=== PATIENT | female | born 1940 | race Caucasian/White ===

== ENCOUNTER 2016-06-12 01:22 | Observation (INO) ==
[2016-06-12] MEDS ORDERED: Aspirin 81 MG TAB.CHEW PO ONE (01:55)
[2016-06-12] MEDS ORDERED: Nitroglycerin 0.4 MG TAB.SUBL SL ONE (01:55)
--- NOTE | 2016-06-12 02:01 | Emergency Department Note ---
Disposition Clinical Impression: Chest pain Qualifiers: Chest pain type: unspecified Qualified Code(s): R07.9 - Chest pain, unspecified Disposition: Admitted As Inpatient Condition: Good Time of Disposition: 03:38 Chest Pain HPI - General Chief Complaint: ED Chest Pain Stated Complaint: Chest Pain Time Seen by Provider: 06/12/16 01:30 Source: patient Limitations: no limitations Vital Signs Reviewed: Yes Nursing Notes Reviewed: Yes - History of Present Illness Pt complaint: chest pain Onset (ago): day(s) (3) Duration: gradually worsening Onset: during rest Pain Location: left chest Severity scale (1-10): 2 Quality: similar to prior MD Improves with: nothing Worsens with: nothing Associated symptoms: Reports: nausea, dyspnea, palpitations. Denies: diaphoresis, syncope, fever, cough Treatments prior to arrival chest pain: none - Related Data Home Medications Medication Instructions Recorded Confirmed Atorvastatin Calcium 80 mg PO DAILY 01/23/15 06/12/16 Enalapril Maleate 20 mg PO DAILY 01/23/15 06/12/16 GlipiZIDE XL (24 HR) 10 mg PO DAILY 01/23/15 06/12/16 Hydrochlorothiazide 25 mg PO DAILY 01/23/15 06/12/16 Levothyroxine Sodium 75 mcg PO QAM 01/23/15 06/12/16 Metformin HCl 1,000 mg PO BID 01/23/15 06/12/16 Metoprolol 50 mg PO BID 01/23/15 06/12/16 SitaGLIPtin [Januvia] 100 mg PO DAILY 01/23/15 06/12/16 Venlafaxine 75 mg PO DAILY 01/23/15 06/12/16 Xanax 0.5 MG Tablet 1 mg PO DAILY 01/23/15 06/12/16 Previous Rx's Medication Instructions Recorded Aspirin Enteric Coated [Aspirin EC] 81 mg PO DAILY 30 Days 01/25/15 Nitroglycerin 0.4 mg SL Q5MIN PRN #100 tab.subl 01/25/15 Plavix 75 mg PO DAILY #30 01/25/15 Allergies Allergy/AdvReac Type Severity Reaction Status Date / Time No Known Allergies Allergy Verified 01/23/15 11:13 All systems ED: reviewed and negative except as stated. Constitutional: Denies: chills Eyes: Denies: eye pain ENT ED: Denies: ear pain Cardiovascular: Reports: as per HPI, palpitations. Denies: dyspnea on exertion , syncope Respiratory: Denies: cough, dyspnea, wheezes Gastrointestinal: Reports: as per HPI. Denies: abdominal pain, vomiting Genitourinary: Denies: dysuria Musculoskeletal: Denies: back pain Integumentary: Denies: rash Neurological: Reports: as per HPI. Denies: headache Psychiatric: Reports: anxiety Endocrine: Reports: fatigue Hematological/Lymphatic: Denies: easy bleeding Allergic/Immunologic: Denies: facial swelling Chest Pain PMH - Past Medical History Medical history: Reports: CVA, diabetes, hyperlipidemia, hypertension, myocardial infarction Surgical history: Reports: angioplasty/stent, hysterectomy, orthopedic, other - Social History Smoking Status: Never smoker Alcohol use: Reports: none Drug use: Reports: none Physical Exam - General Limitations: no limitations General appearance: alert, in no apparent distress - Head Head exam: normocephalic - Eye Eye exam: Present: EOMI - ENT ENT exam: mucous membranes moist - Neck Neck exam: Present: full ROM - Chest Chest inspection: Present: normal inspection, symmetric chest wall rise - Respiratory Respiratory exam: Present: normal lung sounds bilaterally. Absent: respiratory distress, wheezes - Cardiovascular Cardiovascular exam: Present: regular rate, normal rhythm - Abdominal Exam Abdominal exam: Present: soft, Non-Tender - Extremities Exam Extremities exam: Present: normal inspection, full ROM, normal capillary refill. Absent: tenderness - Back Exam Back exam: Present: full ROM - Neurological Exam Neurological exam: Present: alert - Psychiatric Psychiatric exam: Present: normal affect, normal mood - Skin Skin exam: Present: warm, dry, intact, normal color. Absent: rash, cyanosis, diaphoresis Course Course Narrative: 76-year-old female diabetic presents with complaints of recent history of chest pain accompanied by shortness of breath. 4 days ago she was raking in her yard and became short of breath and weak. He is ago she felt some left- sided chest pain, but cannot recall what she was doing when she felt it. She mentioned that she had felt it moved to her right chest. She has mentioned that it has been accompanied with some mild nausea and tingling in her bilateral hands. She describes a left-sided chest pain pressure. Earlier tonight the chest pain had recurred which prompted her visit to the emergency department. She denies any diaphoresis, or exertional component of her pain. She is accompanied by her mentions patient has been feeling more fatigued for weeks but the chest pain is new. He also mentioned the patient has been out of her Xanax for history of anxiety for approximately 3 days, and mentioned increased life stressors which caused her to take more than normal. She gets this from her primary care provider, Dr. Linn. Patient seen and examined. She is in no acute distress, she does not look toxic. She describes left anterior chest pain. Workup initiated. Aspirin and nitroglycerin ordered. - Reevaluation(s) Reevaluation #1: Medical records reviewed. She was hospitalized for NSTEMI, and catheterization with stent placed in [facility] in 2014. She also had an echo at that admission, however since then she states she has not followed up with a coating machine operator helper or he said any further evaluations. Patient had received one dose of nitroglycerin, and she states her chest pain had improved. Her blood pressure is also improved. She appears resting comfortably in bed. At this time lab work is still pending. No acute signs of ischemia on EKG. Chest x-ray normal. Did discuss patient with Dr. Carson who also had face time with patient, and mentions although this may be related to her being out of her Xanax, her chest pain is described as similar to her past MIs. We will order Atwes, and paged hospitalist for admission for cardiac rule out. Time: 02:50 Reevaluation #2: Hospitalist was paged, and I discussed patient with Dr. Lara who agreed to accept the patient for chest pain rule out. He also requested 10 mg hydralazine IV to further improve patient's blood pressure Time: 03:37 Vital Signs Temperature 98.4 F 06/12/16 01:23 Pulse Rate 85 06/12/16 01:23 Respiratory Rate 16 06/12/16 01:23 Blood Pressure 216/104 06/12/16 01:23 O2 Sat by Pulse Oximetry 98 06/12/16 01:23 Temperature 98.4 F 06/12/16 01:23 Pulse Rate 67 06/12/16 03:56 Respiratory Rate 19 06/12/16 03:56 Blood Pressure 164/73 06/12/16 03:56 O2 Sat by Pulse Oximetry 95 06/12/16 03:56 Oxygen Delivery Oxygen Delivery Room Air Chest Pain - Lab Data Lab results reviewed: Yes I reviewed the patient's lab results. Result diagrams: 06/12/16 02:48 06/12/16 02:48 Lab Results 06/12/16 06/12/16 06/12/16 Range/Units 02:48 02:48 02:48 WBC 7.2 (4.3-11.1) K/mcL RBC 3.84 (3.82-4.97) M/mcL Hgb 10.9 L (11.5-15.4) g/dL Hct 33.3 L (35.3-44.9) % MCV 86.7 (83.0-100.0) fL MCH 28.4 (28.0-33.3) pg MCHC 32.7 (31.6-35.5) g/dL RDW 13.7 (11.5-14.5) % Plt Count 345 (140-400) K/mcL MPV 10.5 (9.4-12.4) fL Immature Gran % 0.3 (0-4) % Seg Neutrophils % 61.0 % Lymphocytes % 30.5 % Monocytes % 5.6 % Eosinophils % 2.2 % Basophils % 0.4 % Neutrophils # 4.4 (1.6-8.9) K/mcL Lymphocytes # 2.2 (0.6-4.6) K/mcL Monocytes # 0.4 (0.0-1.3) K/mcL Eosinophils # 0.2 (0.0-0.6) K/mcL Basophils # 0.0 (0.0-0.2) K/mcL PT 10.6 (9.4-12.1) Seconds INR 1.0 APTT 29.4 (26.0-36.0) Seconds Sodium 133 L (136-145) mEq/L Potassium 4.1 (3.5-4.5) mEq/L Chloride 98 (98-109) mEq/L Carbon Dioxide 21 (19-29) mEq/L BUN 19 (7-20) mg/dL Creatinine 1.16 H (0.57-1.11) mg/dL Est GFR ( Amer) 55 L (> 60) Est GFR (Non-Af Amer) 46 L (> 60) BUN/Creatinine Ratio 16 (6-26) Glucose 133 H (70-99) mg/dL Calculated Osmolality 280 (280-300) Calcium 9.1 (8.6-10.8) mg/dL Troponin I (0-0.03) ng/mL 06/12/16 Range/Units 02:48 WBC (4.3-11.1) K/mcL RBC (3.82-4.97) M/mcL Hgb (11.5-15.4) g/dL Hct (35.3-44.9) % MCV (83.0-100.0) fL MCH (28.0-33.3) pg MCHC (31.6-35.5) g/dL RDW (11.5-14.5) % Plt Count (140-400) K/mcL MPV (9.4-12.4) fL Immature Gran % (0-4) % Seg Neutrophils % % Lymphocytes % % Monocytes % % Eosinophils % % Basophils % % Neutrophils # (1.6-8.9) K/mcL Lymphocytes # (0.6-4.6) K/mcL Monocytes # (0.0-1.3) K/mcL Eosinophils # (0.0-0.6) K/mcL Basophils # (0.0-0.2) K/mcL PT (9.4-12.1) Seconds INR APTT (26.0-36.0) Seconds Sodium (136-145) mEq/L Potassium (3.5-4.5) mEq/L Chloride (98-109) mEq/L Carbon Dioxide (19-29) mEq/L BUN (7-20) mg/dL Creatinine (0.57-1.11) mg/dL Est GFR ( Amer) (> 60) Est GFR (Non-Af Amer) (> 60) BUN/Creatinine Ratio (6-26) Glucose (70-99) mg/dL Calculated Osmolality (280-300) Calcium (8.6-10.8) mg/dL Troponin I 0.01 (0-0.03) ng/mL - Radiology Data Radiology results reviewed: Yes I reviewed the patient's radiology results. - EKG Data EKG attestation: Yes I reviewed and interpreted this EKG. EKG results narrative: Nonspecific ST changes. EKG comparable to previous EKG Heart Score - Score History: Moderately Suspicious EKG: Non Specific repolarisation Disturbance Age: Greater than 65 Risk Factors: Equal/Greater than 3 risk factor or history of atherosclerotic disease Troponin: Less than normal limit HEART Score Total: 6
[2016-06-12] MEDS ORDERED: *HR* LORazepam 1 MG TABLET PO ONE (02:47)
--- NOTE | 2016-06-12 02:50 | Emergency Department Note ---
START Narrative - START START: I examined this patient and my medical decision-making was reviewed with the OCCUPATIONAL MEDICINE PHYSICIAN/PA/Advanced Practice Nurse/Resident Physician. I agree with the documented findings, disposition and treatment plan as described except to the extent set forth below. ED attending note: Patient seen with physician assistant teaching professor Remy Perez Please see a copy of his note for details of the H&P, evaluation, management and disposition of this patient. We independently had [id number] contact with the patient Briefly: 76-year-old female history of AZ and stent 2. Has been on benzos for anxiety control out for the past 3 days due to increased stressors. Patient had chest heaviness and palpitations. Patient has symptoms which sometimes some time she describes are consistent with prior benzo withdrawal however other symptoms of the chest heaviness and pain that is worse today at rest and armrest is more consistent with prior AZ. EKG shows nonspecific ST-T changes. Patient had x-ray and troponin. Plan is admission. Provided 35 minutes critical care service for this patient. Patient stable.
[2016-06-12 02:56] LABS: Basophils % 0.4 %; Eosinophils # 0.2 K/mcL (0.0-0.6); Eosinophils % 2.2 %; Hematocrit 33.3 % (35.3-44.9); Hemoglobin 10.9 g/dL (11.5-15.4); Immature Granulocytes % 0.3 % (0-4); Lymphocytes # 2.2 K/mcL (0.6-4.6); Lymphocytes % 30.5 %; Mean Corpuscular HGB Conc 32.7 g/dL (31.6-35.5); Mean Corpuscular Hemoglobin 28.4 pg (28.0-33.3); Mean Corpuscular Volume 86.7 fL (83.0-100.0); Mean Platelet Volume 10.5 fL (9.4-12.4); Monocytes # 0.4 K/mcL (0.0-1.3); Monocytes % 5.6 %; Neutrophils # 4.4 K/mcL (1.6-8.9); Platelet Count 345 K/mcL (140-400); Red Blood Count 3.84 M/mcL (3.82-4.97); Red Cell Distribution Width 13.7 % (11.5-14.5)
[2016-06-12 03:01] LABS: Prothrombin Time 10.6 Seconds (9.4-12.1)
[2016-06-12 03:04] LABS: Activated Partial Thrombo Time 29.4 Seconds (26.0-36.0)
[2016-06-12 03:08] LABS: Calcium 9.1 mg/dL (8.6-10.8); Potassium 4.1 mEq/L (3.5-4.5)
[2016-06-12] MEDS ORDERED: Ondansetron ODT 4 MG TAB.RAPDIS SL PRN (04:26)
[2016-06-12] MEDS ORDERED: Dextrose Gel 15 GM PO PRN ×2 (04:26)
[2016-06-12] MEDS ORDERED: *HR* Dextrose 50 % in Water (Syg) 50 ML SYRINGE IVP PRN (04:26)
[2016-06-12] MEDS ORDERED: Naloxone 0.4 MG/ML INJ IVP PRN (04:26)
[2016-06-12] MEDS ORDERED: D5% in Water 1,000 ML IV PRN (04:26)
[2016-06-12] MEDS ORDERED: Acetaminophen 325 MG TABLET PO PRN (04:26)
--- NOTE | 2016-06-12 04:33 | Internal Med History&Physical ---
<Karlie Nevarez - Last Filed: 06/12/16 05:21> Date of Encounter: 06/12/16 Time of Encounter: 04:31 Assessment and Plan (1) Palpitations Current visit: Yes Status: Acute check TSH telemetry (2) Chest pain Current visit: Yes Status: Acute trend troponins lipid panel stress test Qualifiers: Chest pain type: unspecified Qualified Code(s): R07.9 - Chest pain, unspecified (3) Anxiety Current visit: Yes Status: Acute continue home Xanax dose patient states she takes at least one pill a day and can take more than one if needed (4) CAD in [place] artery Current visit: No Status: Chronic (5) Stented coronary artery Current visit: No Status: Acute (6) Diabetes Current visit: No Status: Chronic sliding scale Qualifiers: Diabetes mellitus type: type 2 Diabetes mellitus complication status: without complication Diabetes mellitus termite treater insulin use: without termite treater use Qualified Code(s): E11.9 - Type 2 diabetes mellitus without complications (7) Hypertension Current visit: No Status: Chronic continue home medications Qualifiers: Hypertension type: essential hypertension Qualified Code(s): I10 - Essential (primary) hypertension (8) Hypothyroidism Current visit: No Status: Chronic check TSH continue home synthroid Qualifiers: Hypothyroidism type: acquired Qualified Code(s): E03.9 - Hypothyroidism, unspecified (9) Hyperlipidemia Current visit: No Status: Chronic Qualifiers: Hyperlipidemia type: unspecified Qualified Code(s): E78.5 - Hyperlipidemia , unspecified (10) DVT prophylaxis Current visit: No Status: Acute SQ heparin Internal Medicine - H&P: HPI Chief complaint: palpitations Admitted From: Emergency Dept Plans for Post Hospital Care: Home History of present illness: Ms. Jolley is a 76 year old anxious diabetic with HTN, HLD, and CAD s/p stents who presents to the ER with a chief complaint of palpitations and chest pain. She states that her heart beating funny is nothing new and started many years ago, but the frequency decreased greatly since she has underwent 2 cardiac catherizations. She had chest pain last week while raking leaves during some unseasonably warm weather and again this evening while at rest. The pain was pressure-like and located both in the right side of her chest radiating to her axilla and the left side of her chest. She states that she also has been under increased stress lately and taking more than one Xanax daily. Due to this, she ran out of medication several days ago and has been working on getting more from the pharmacy. She thinks that her palpitations may be due to her running out of medication. Her notes that she has had increased stress lately. He also notes a more chronic increased fatigue/weakness. Past Med Surg Social Fam HX - Past Medical History Medical history: coronary artery disease, CVA, diabetes, hyperlipidemia, hypertension, myocardial infarction, thyroid disease Psychiatric history: anxiety - Past Surgical History Surgical History: angioplasty/stent, hysterectomy, orthopedic, other - Social History Smoking Status: Never smoker Alcohol use: none Drug use: none Occupational status: retired Current living situation: Home - Independent Activity Level: Independent ambulation Internal Medicine - H&P: Meds Atorvastatin Calcium 80 mg PO DAILY 01/23/15 [History] Enalapril Maleate 20 mg PO DAILY 01/23/15 [History] GlipiZIDE XL (24 HR) 10 mg PO DAILY 01/23/15 [History] Hydrochlorothiazide 25 mg PO DAILY 01/23/15 [History] Levothyroxine Sodium 75 mcg PO QAM 01/23/15 [History] Metformin HCl 1,000 mg PO BID 01/23/15 [History] Metoprolol 50 mg PO BID 01/23/15 [History] SitaGLIPtin [Januvia] 100 mg PO DAILY 01/23/15 [History] Venlafaxine HCl [Venlafaxine HCl ER] 75 mg PO DAILY #0 01/23/15 [History] Xanax 0.5 MG Tablet 1 mg PO DAILY 01/23/15 [History] Aspirin Enteric Coated [Aspirin EC] 81 mg PO DAILY 30 Days 01/25/15 [Rx] Nitroglycerin 0.4 mg SL Q5MIN PRN #100 tab.subl 01/25/15 [Rx] Plavix 75 mg PO DAILY #30 01/25/15 [Rx] Ferrous Sulfate 325 mg PO BID 06/12/16 [History] Allergies No Known Allergies Allergy (Verified 01/23/15 11:13) All Systems PM: A 10-system review of systems was performed and is negative for pertinent findings except as documented above in the HPI. - Constitutional Constitutional: fatigue (chronic), no chills, no fever(s), no night sweats - EENT Eyes: no change in vision, no discharge, no pain, no photophobia Ears: no ear discharge, no ear pain, no tinnitus Nose, mouth and throat: no dysphagia, no nasal discharge, no neck pain, no sore throat - Cardiovascular Cardiovascular ROS IM: chest pain, palpitations, no diaphoresis, no dyspnea, no lightheadedness, no syncope - Respiratory Respiratory: dyspnea, no cough, no wheezing, no excessive phlegm production - Gastrointestinal Gastrointestinal: nausea, no abdominal pain, no diarrhea, no hematemesis, no hematochezia, no melena, no vomiting - Genitourinary Genitourinary: no change in urinary stream, no dysuria, no flank pain, no hematuria, no urinary frequency, no urinary urgency - Musculoskeletal Musculoskeletal ROS IM: no arthralgias, no myalgias, no numbness, no tingling - Integumentary Integumentary IM: no rash, no unusual bruising - Neurological Neurological ROS: paresthesias (chronic), no confusion, no convulsions, no focal weakness, no numbness, no tingling, no tremor(s) - Hematologic/Lymphatic Hematologic/Lymphatic: no easy bruising - Constitutional Vitals: Temp Pulse Resp BP Pulse Ox 98.3 F 67 16 162/72 95 06/12/16 04:28 06/12/16 03:56 06/12/16 04:28 06/12/16 04:28 06/12/16 03:56 General appearance: Present: A&O X 3, no acute distress, answers questions appropriately - Head Head exam: Present: atraumatic, normocephalic - Eye Eye exam: Present: PERRL, conjuntiva pink, sclera anicteric Pupils: Present: PERRL - Neck Neck exam general surgery: Present: supple, trachea midline. Absent: lymphadenopathy - Respiratory Respiratory exam: Present: CTAB. Absent: accessory muscle use, rales, rhonchi, wheezes - Cardiovascular Cardiovascular exam: Present: RRR, +S1, +S2. Absent: diastolic murmur, gallop, rubs, systolic murmur - GI/Abdominal GI/Abdominal exam: Present: normal bowel sounds, soft, no peritoneal signs. Absent: distended, tenderness - Extremities Exam Extremities exam: Present: warm, radial pulses palpable and symetrical. Absent : calf tenderness, cyanotic, pedal edema - Neurological Exam Neurological exam: Present: CN II-XII intact, oriented X3, no focal deficits. Absent: pronater drift, facial droop, speech deficit - Skin Skin exam: Present: dry, intact Internal Med - H&P Results - Labs CBC & Chem 7: 06/12/16 02:48 06/12/16 02:48 <Kaity Yanez - Last Filed: 06/12/16 05:50> Date of Encounter: 06/12/16 Internal Medicine - H&P: HPI History of present illness: Ms. Jolley is a 76 year old female All Systems PM: A 10-system review of systems was performed and is negative for pertinent findings except as documented above in the HPI. - Constitutional Vitals: Temp Pulse Resp BP Pulse Ox 98.2 F 68 16 150/65 98 06/12/16 05:06 06/12/16 05:06 06/12/16 05:06 06/12/16 05:06 06/12/16 05:06 Internal Med - H&P Results - Labs CBC & Chem 7: 06/12/16 02:48 06/12/16 02:48 - Attending Attestation I performed a history and physical examination of the patient and discussed his management with the Resident/Inspector Of Weights And Measures (Dr Nevarez). I reviewed the residents note and agree with the documented findings and plan of care, with additions as below 76-year-old female with history of diabetes, hypertension hyperlipidemia, coronary artery disease status post stent placement, anxiety. She reports that she ran out of her anxiety medication. She reports palpitations which she attributes to not taking anxiety medications. She also had right-sided chest pain going to the left side of the chest, last evening. Patient recent history of exertional chest pain while raking leaves. O/E: Cardiac: RRR; No carotid bruit; lungs: CTA. EKG: SR, poor R wave progression in the anterior chest leads. A/P: Chest pain: Initial troponin negative. Trend troponin, if negative stress test. Lipid panel. Palpitations: Check TSH. Resume anti anxiety medications.
[2016-06-12] MEDS ORDERED: ALPRAZolam 1 MG TABLET PO PRN (05:12)
[2016-06-12 05:41] LABS: Chol/HDL Ratio 5.3 (0-4.9)
[2016-06-12 06:04] LABS: Thyroid Stimulating Hormone 2.358 mcIU/mL (0.350-4.840)
[2016-06-12] MEDS ORDERED: Regadenoson 0.4 MG/5 ML SYRINGE IVP ONE (06:16)
[2016-06-12] MEDS ORDERED: *HR* Heparin 5,000 UNIT/ML VIAL SQ SCH (07:00)
[2016-06-12] MEDS ORDERED: Lisinopril 20 MG TABLET PO SCH (09:00)
[2016-06-12] MEDS ORDERED: METOPROLOL 50 MG PO SCH (09:00)
[2016-06-12] MEDS ORDERED: Aspirin 81 MG TAB.CHEW PO SCH (09:00)
[2016-06-12] MEDS ORDERED: Venlafaxine XR (24 HR) 75 MG CAP.ER.24H PO SCH (09:00)
[2016-06-12] MEDS ORDERED: hydroCHLOROthiazide 25 MG TABLET PO SCH (09:00)
[2016-06-12] MEDS: Insulin LISPRO 300 UNITS/3 ML VIAL SQ SCH ×2 (09:46→12:02)
--- NOTE | 2016-06-12 10:48 | Nuclear Medicine Stress Report ---
Regadenoson Nuclear Stress Name: Kelly Jolley Date of Study: 06/12/2016 Date: 1940 Ht: 65.0 in Medical Record#: [id number] Age: 76 Wt: 150.0 lb Gender: Female Order #: [id number] Location: [facility] Room: [facility] Supervising Provider: Aguila Rosas CNP Reading Physician: Darby Chacko DO Ordering Physician: Sana Pham CNP Primary Care Physician: Jero Finn DO Stress Technologist: Italia Up, JANNA Roof Truss Machine Tender: Crystal Leo Indications: Chest Pain Impression: Perfusion imaging was negative for ischemia or infarct. Pharmacologic ECG was non-diagnostic for ischemia at the level of heart rate achieved. Gated EF = >70%. History: Hypertension Diabetes Hypercholesteremia Prior PCI Stress Test Summary: Stress Test Type: Pharmacologic Regadenoson 0.4mg/5ml given IV Baseline Information: Initial Heart Rate: 77 Blood Pressure: 158/80 Stress Information: Test Terminated Due to (primary): As per protocol Maximum Blood Pressure: 180/110 Maximum Heart Rate: 120 Percent Maximum Heart Rate Achieved: 82 Double Product: [id number] METS Reached: 1 Symptoms: Nausea, Vomiting Nuclear Summary: SPECT myocardial perfusion imaging using Tc99m Sestamibi given intravenously was performed at rest and following cardiac stress testing. The resting images were obtained following initial dose of 10.3 mCi. Following stress an additional dose of 35.6 mCi was given at peak exercise or 30 seconds post regadenoson infusion. Medication Given: Time Medication Dose Units Route Findings: Stress Note * Resting ECG demonstrated normal sinus rhythm with nonspecific ST abnormalities. * Pharmacologic stress ECG is non diagnostic for ischemia due to baseline non-specific ST and T changes. * Patient had no chest pain during stress. * No arrhythmias were noted during stress. Hemodynamic responses * Appropriate hemodynamic responses to pharmacologic stress. Study Quality * Study quality is good. Gated EF > 70% * Gated EF > 70%. Left Ventricle * The left ventricle is not dilated. TID * No evidence of transient ischemic dilatation. Lung Uptake * There is no evidence of increase lung uptake. NORMALS * Normal wall motion. * Normal segmental perfusion in stress. * Normal Segmental Perfusion in rest. Updated by Darby Chacko on 06/12/2016 10:41:26 AM electronically signed on 06/12/2016 10:43:24 AM with status of Final
[2016-06-12 11:12] VITALS: BP 172/89
--- NOTE | 2016-06-12 14:50 | Discharge Summary ---
Date of Encounter: 06/12/16 Time of Encounter: 14:00 - Discharge Diagnosis (1) Chest pain Priority: Primary Status: Resolved Comments: Patient denied chest pain at time of discharge. Chest x-ray negative. Stress test negative in revealing ejection fraction greater than 70%. Troponin negative 3. Likely secondary to palpitations caused by Xanax withdrawal, follow-up outpatient. Qualifiers: Chest pain type: unspecified Qualified Code(s): R07.9 - Chest pain, unspecified (2) Palpitations Priority: Primary Status: Resolved Comments: Strongly suspect withdrawal from Xanax. Resolved on day of discharge (3) Anxiety Priority: Secondary Status: Chronic Comments: Uncontrolled with current alprazolam 1 mg daily dosage she has been on for approximately 1 year. Patient with increased stressors at work and was using more than one tablet per day- recommend follow-up outpatient with primary care provider for possible dosage adjustment. (4) DVT prophylaxis Priority: Primary Status: Acute Comments: Subcutaneous heparin while admitted (5) Stented coronary artery Priority: Secondary Status: Chronic Comments: On Plavix (6) CAD in [place] artery Priority: Secondary Status: Chronic (7) Diabetes Priority: Secondary Status: Chronic Comments: Appears relatively well-controlled with her most recent A1c of 6.4%. Recommend continued follow-up outpatient. Qualifiers: Diabetes mellitus type: type 2 Diabetes mellitus complication status: without complication Diabetes mellitus usp insulin use: without exterminator use Qualified Code(s): E11.9 - Type 2 diabetes mellitus without complications (8) Hyperlipidemia Priority: Secondary Status: Chronic Comments: Hypertriglyceridemia noted, she is on high-dose statin, follow-up outpatient, recommended low-cholesterol diet Qualifiers: Hyperlipidemia type: mixed hyperlipidemia Qualified Code(s): E78.2 - Mixed hyperlipidemia (9) Hypertension Priority: Secondary Status: Chronic Comments: Borderline hypertensive at time of discharge however medications of metoprolol has not been given yet secondary to stress test. Recommend daily blood pressure checks at home and continuing her regular regimen and follow up outpatient (10) Hypothyroidism Priority: Secondary Status: Chronic Comments: TSH normal Qualifiers: Hypothyroidism type: acquired Qualified Code(s): E03.9 - Hypothyroidism, unspecified - Discharge Medications Home Medications: SitaGLIPtin [Januvia] 100 mg PO DAILY 01/23/15 [History] Venlafaxine HCl [Venlafaxine HCl ER] 75 mg PO DAILY #0 01/23/15 [History] Aspirin Enteric Coated [Aspirin EC] 81 mg PO DAILY 30 Days 01/25/15 [Rx] Nitroglycerin 0.4 mg SL Q5MIN PRN #100 tab.subl 01/25/15 [Rx] Alprazolam [Xanax 1 MG Tablet] 1 mg PO DAILY 06/12/16 [History] Atorvastatin Calcium 80 mg PO DAILY 06/12/16 [History] Clopidogrel [Plavix] 75 mg PO DAILY 06/12/16 [History] Enalapril Maleate 20 mg PO DAILY 06/12/16 [History] Ferrous Sulfate 325 mg PO BID 06/12/16 [History] GlipiZIDE [Glipizide ER] 10 mg PO DAILY 06/12/16 [History] Hydrochlorothiazide 25 mg PO DAILY 06/12/16 [History] Levothyroxine Sodium 75 mcg PO DAILY 06/12/16 [History] Metoprolol [Lopressor] 50 mg PO BID 06/12/16 [History] Simvastatin [Zocor] 20 mg PO DAILY 06/12/16 [History] Allergies/Adverse Reactions: Allergies No Known Allergies Allergy (Verified 06/12/16 08:04) Procedures/tests Complete & Pending: Procedures Performed prior 72 hours Category Date Time Status NM alexey perf SPECT multi [NM] Routine Exams 06/12/16 05:12 Taken SP pharm nuclear stress Routine Y 06/12/16 07:35 Completed Date of admission: 06/12/16 04:04 Primary care physician: Romero Finn Discharging clinician: Sana Pham Anticipated date of discharge: 06/12/16 - Patient Status Disposition: Home, Self-Care Condition: Good Functional capacity at discharge: independent ambulation Overall status at discharge: patient is back to baseline - Discharge Instructions Follow Up With: Romero Finn DO [Primary Care Provider] - Additional Instructions: Follow-up with primary care provider in one to 2 weeks - Diet and Activity Activity: increase activity as tolerated Diet: diabetic diet, low fat, low cholesterol, low salt diet Hospital course: Ms. Jolley is a 76 year old female with past medical history of diabetes, anxiety , hypertension, hyperlipidemia, CAD status post stents. Patient presented to the emergency department chief complaint palpitations and chest pain. Patient stating she felt as if her heart was beating funny but she states this is nothing new and has started many years prior to presentation but the frequency had decreased greatly ever since she had undergone 2 cardiac catheterizations. Patient stating she had chest pain on the week prior to presentation when she was raking leaves and again on the evening of presentation while she was at rest. The pain was pressure-like and located both on the right side of her chest radiating to her axilla and the left side of her chest. Patient also endorsed increased stress at work and states that she had been taking more than one Xanax at home and had ran out of her medication prior to presentation. Workup in the emergency department unremarkable. Chest x-ray negative. Patient was admitted to the hospitalist service for further evaluation and management. Troponins negative 3. Patient had a nuclear stress test that was negative for ischemia or infarct revealed an ejection fraction greater than 70% . At time of discharge, patient stating her palpitations and chest pain had resolved after she was given her regular dose of Xanax. Acute coronary syndrome ruled out. Likely cause of patient's palpitations or chest pain withdrawal from her Xanax. She has been on the same dose of Xanax for approximately one year. Recommend follow-up outpatient with her primary care provider for possible increased frequency of alprazolam or even transition to clonazepam at her primary care provider's discretion. She was discharged home in stable condition with close outpatient follow-up recommended. ITS Impressions Chest X-Ray 06/12/16 01:30 IMPRESSION: No acute process. D/ / Vanessa Guerrero MD / Vanessa Guerrero MD Interpreting Provider: Vanessa Guerrero MD Nuclear stress impression: Perfusion imaging was negative for ischemia or infarct. Pharmacologic ECG is nondiagnostic for ischemia at the level heart rate achieved. Gated ejection fraction is greater than 70%. - Time Spent with Patient Total time spent providing and/or coordinating discharge services: - Constitutional Vitals: Temp Pulse Resp BP Pulse Ox 98.1 F 83 14 172/89 97 06/12/16 11:11 06/12/16 11:11 06/12/16 11:11 06/12/16 11:11 06/12/16 11:11 General appearance: Present: A&O X 3, pleasant, no acute distress, answers questions appropriately - Head Head exam: Present: atraumatic, normocephalic - Eye Eye exam: Present: PERRL, conjuntiva pink, sclera anicteric Pupils: Present: PERRL - Neck Neck exam general surgery: Present: supple, trachea midline. Absent: lymphadenopathy - Respiratory Respiratory exam: Present: CTAB. Absent: accessory muscle use, rales, respiratory distress, rhonchi, wheezes - Cardiovascular Cardiovascular exam: Present: RRR, +S1, +S2. Absent: diastolic murmur, gallop, rubs, systolic murmur - GI/Abdominal GI/Abdominal exam: Present: normal bowel sounds, soft, no peritoneal signs. Absent: distended, tenderness - Extremities Exam Extremities exam: Present: warm, radial pulses palpable and symetrical. Absent : calf tenderness, cyanotic, pedal edema - Neurological Exam Neurological exam: Present: alert, CN II-XII intact, normal gait, oriented X3, no focal deficits, strengths equal and symetr throughout. Absent: pronater drift, facial droop, speech deficit - Psychiatric Psychiatric exam: Present: anxious. Absent: manic - Expanded Psychiatric Exam Focused psych exam: Present: restlessness - Skin Skin exam: Present: dry, intact, normal color, warm - VTE Reasons for not Prescribing Prophylaxis: Treatment not Indicated - Low risk for VTE
--- NOTE | 2016-06-12 15:48 | Electrocardiograph Report ---
[address] [place], [place] [address] Test Date: 2016-06-12 Pat Name: Kelly Jolley Department: 104 Room: 3B45 Gender: F Clinical Support Specialist: : [id number] Requested By: Alex Carson Order Number: [id number] Reading MD: Alvaro Daly Measurements Intervals [place] Rate: 76 P: 40 [place]: 167 QRS: 22 QRSD: 89 T: 56 QT: 362 QTc: 392 Interpretive Statements SINUS RHYTHM WITH SINUS ARRHYTHMIA MODERATE ST DEPRESSION Electronically Signed On 06-12-2016 15:47:13 EST by Alvaro Daly
== END 2016-06-12 15:45 | disposition home or self-care (01) ==
LOC: EMEROO 01:22 → 3BNU 01:22
PROVIDERS: ADMIT Internal Medicine; ATTEND Nurse Practitioner Family

== ENCOUNTER 2020-01-11 23:50 | Observation (INO) ==
[2020-01-12] MEDS ORDERED: Aspirin 81 MG TAB.CHEW PO ONE (00:08)
[2020-01-12 00:34] LABS: Basophils % 0.4 %; Eosinophils # 0.1 K/mcL (0.0-0.6); Eosinophils % 1.8 %; Hematocrit 31.6 % (35.3-44.9); Hemoglobin 10.3 g/dL (11.5-15.4); Immature Granulocytes % 0.3 % (0-4); Lymphocytes # 2.3 K/mcL (0.6-4.6); Lymphocytes % 34.3 %; Mean Corpuscular HGB Conc 32.6 g/dL (31.6-35.5); Mean Corpuscular Hemoglobin 27.3 pg (28.0-33.3); Mean Corpuscular Volume 83.8 fL (83.0-100.0); Mean Platelet Volume 10.9 fL (9.4-12.4); Monocytes # 0.5 K/mcL (0.0-1.3); Monocytes % 7.2 %; Neutrophils # 3.8 K/mcL (1.6-8.9); Platelet Count 321 K/mcL (140-400); Prothrombin Time 11.5 Seconds (9.4-12.1); Red Blood Count 3.77 M/mcL (3.82-4.97); Red Cell Distribution Width 15.5 % (11.5-14.5); White Blood Count 6.7 K/mcL (4.3-11.1)
[2020-01-12] MEDS ORDERED: Nitroglycerin 0.4 MG TAB.SUBL SL PRN ×2 (00:38→05:30)
[2020-01-12 00:53] LABS: BUN/Creatinine Ratio 15 (6-26); Blood Urea Nitrogen 23 mg/dL (8-23); Calcium 8.1 mg/dL (8.6-10.3); Carbon Dioxide 25 mEq/L (23-29); Chloride 96 mEq/L (98-107); Glucose 280 mg/dL (70-105); Osmolality,Calculated 292 (280-300); Potassium 3.4 mEq/L (3.5-5.1); Sodium 134 mEq/L (136-145); eGFR For African Americans 41 (> 60); eGFR For Non-African Americans 34 (> 60)
[2020-01-12 00:55] LABS: Troponin I < 0.03 ng/mL (< 0.04)
[2020-01-12] MEDS ORDERED: Naloxone 0.4 MG/ML INJ IVP PRN (05:29)
[2020-01-12] MEDS ORDERED: Ondansetron 4 MG/2 ML VIAL IVP PRN (05:29)
[2020-01-12] MEDS ORDERED: Perflutren Lipid Microsphere 1.3 ML in 0.9 % Sodium Chloride 8.7 ML IVP PRN (05:30)
[2020-01-12] MEDS ORDERED: D5% in Water 1,000 ML IVC PRN (05:32)
[2020-01-12] MEDS ORDERED: Dextrose Gel 15 GM/37.5 ML TUBE PO PRN ×2 (05:32)
[2020-01-12] MEDS ORDERED: *HR* Dextrose 50 % in Water (Vial) 50 ML VIAL IVP PRN (05:32)
[2020-01-12] MEDS: *HR* Heparin 5,000 UNIT/ML VIAL SQ SCH ×3 (06:42→20:21)
[2020-01-12] MEDS: Insulin LISPRO 300 UNITS/3 ML VIAL SQ SCH ×4 (06:58→23:33)
[2020-01-12] MEDS: carvediloL 25 MG TABLET PO SCH ×2 (08:26→18:00)
[2020-01-12] MEDS: lisinopriL 20 MG TABLET PO SCH (08:26)
[2020-01-12] MEDS ORDERED: Isosorbide MONOnitrate (24 HR) 30 MG TAB.ER.24H PO SCH (09:00)
[2020-01-12] MEDS ORDERED: ALPRAZolam 1 MG TABLET PO PRN (18:05)
[2020-01-12] MEDS ORDERED: *HR* Metoprolol 5 MG/5 ML VIAL IVP ONE (21:04)
[2020-01-13] MEDS: *HR* Heparin 5,000 UNIT/ML VIAL SQ SCH (05:38)
[2020-01-13 05:48] LABS: Hematocrit 31.6 % (35.3-44.9); Hemoglobin 10.2 g/dL (11.5-15.4); Mean Corpuscular HGB Conc 32.3 g/dL (31.6-35.5); Mean Corpuscular Hemoglobin 28.3 pg (28.0-33.3); Mean Corpuscular Volume 87.8 fL (83.0-100.0); Mean Platelet Volume 11.3 fL (9.4-12.4); Platelet Count 294 K/mcL (140-400); Red Cell Distribution Width 15.8 % (11.5-14.5); White Blood Count 6.5 K/mcL (4.3-11.1)
[2020-01-13 05:59] LABS: Calcium 8.2 mg/dL (8.6-10.3); Potassium 3.4 mEq/L (3.5-5.1)
[2020-01-13] MEDS ORDERED: Regadenoson 0.4 MG/5 ML SYRINGE IVP ONE (06:17)
[2020-01-13] MEDS: Insulin LISPRO 300 UNITS/3 ML VIAL SQ SCH ×2 (06:46→14:41)
[2020-01-13] MEDS: carvediloL 25 MG TABLET PO SCH (11:38)
[2020-01-13] MEDS: lisinopriL 20 MG TABLET PO SCH (11:39)
[2020-01-13 14:55] VITALS: BP 111/53
== END 2020-01-13 15:44 | disposition home or self-care (01) ==
LOC: EMEROOARM 23:50 → 3BNU 23:50 → SUATTDRO 01-12 03:30 → 3BNU 01-12 04:04
PROVIDERS: ADMIT Nurse Practitioner Adult Health; ATTEND Nurse Practitioner Adult Health

== ENCOUNTER 2021-02-12 02:24 | Inpatient (IN) ==
[2021-02-12 03:30] LABS: Basophils % 0.4 %; Eosinophils # 0.1 K/mcL (0.0-0.6); Eosinophils % 1.8 %; Hematocrit 31.3 % (35.3-44.9); Immature Granulocytes % 0.3 % (0-4); Lymphocytes # 3.4 K/mcL (0.6-4.6); Lymphocytes % 42.9 %; Mean Corpuscular HGB Conc 31.9 g/dL (31.6-35.5); Mean Corpuscular Hemoglobin 27.2 pg (28.0-33.3); Mean Corpuscular Volume 85.1 fL (83.0-100.0); Mean Platelet Volume 10.9 fL (9.4-12.4); Monocytes # 0.7 K/mcL (0.0-1.3); Monocytes % 8.2 %; Neutrophils # 3.7 K/mcL (1.6-8.9); Platelet Count 342 K/mcL (140-400); Red Blood Count 3.68 M/mcL (3.82-4.97); Red Cell Distribution Width 16.9 % (11.5-14.5); Segmented Neutrophils % 46.4 %
[2021-02-12 03:39] LABS: INR 1.1; Prothrombin Time 11.8 Seconds (9.4-12.1)
[2021-02-12 03:42] LABS: Activated Partial Thrombo Time 32.6 Seconds (26.0-36.0)
[2021-02-12 03:53] LABS: Alanine Aminotransferase 13 Units/L (7-52); Albumin 3.8 g/dL (3.5-5.7); Alkaline Phosphatase 88 Units/L (34-104); Aspartate Amino Transferase 18 Units/L (13-39); BUN/Creatinine Ratio 16 (6-26); Bilirubin,Indirect 0.4 mg/dL (0.0-1.0); Bilirubin,Total 0.4 mg/dL (0.3-1.0); Blood Urea Nitrogen 26 mg/dL (8-23); Calcium 8.6 mg/dL (8.6-10.3); Carbon Dioxide 23 mEq/L (23-29); Chloride 105 mEq/L (98-107); Glucose 145 mg/dL (70-105); Osmolality,Calculated 293 (280-300); Potassium 3.8 mEq/L (3.5-5.1); Sodium 138 mEq/L (136-145); Total Protein 7.8 g/dL (6.4-8.9); eGFR For African Americans 38 (> 60); eGFR For Non-African Americans 31 (> 60)
[2021-02-12 03:54] LABS: Troponin I < 0.03 ng/mL (< 0.04)
[2021-02-12] MEDS: Nitroglycerin 0.4 MG TAB.SUBL SL PRN ×3 (05:16→16:37)
[2021-02-12] MEDS ORDERED: Aspirin 325 MG TABLET PO ONE (06:40)
[2021-02-12] MEDS ORDERED: Ondansetron 4 MG/2 ML VIAL IVP PRN (07:25)
[2021-02-12] MEDS ORDERED: Naloxone 0.4 MG/ML INJ IVP PRN (07:25)
[2021-02-12] MEDS ORDERED: ALPRAZolam 1 MG TABLET PO PRN (07:35)
[2021-02-12] MEDS ORDERED: Dextrose Gel 15 GM/37.5 ML TUBE PO PRN ×2 (07:36)
[2021-02-12] MEDS ORDERED: D5% in Water 1,000 ML IVC PRN (07:36)
[2021-02-12] MEDS ORDERED: *HR* Dextrose 50 % in Water (Syg) 50 ML SYRINGE IVP PRN (07:36)
[2021-02-12] MEDS: carvediloL 25 MG TABLET PO SCH ×2 (08:31→16:38)
[2021-02-12] MEDS: Isosorbide MONOnitrate (24 HR) 30 MG TAB.ER.24H PO SCH (08:31)
[2021-02-12] MEDS: Insulin LISPRO 300 UNITS/3 ML VIAL SUBQ SCH ×3 (14:42→19:53)
[2021-02-12] MEDS: *HR* Heparin 5,000 UNIT/ML VIAL SQ SCH (16:38)
[2021-02-13 03:01] LABS: Basophils % 0.4 %; Eosinophils # 0.1 K/mcL (0.0-0.6); Eosinophils % 1.7 %; Hematocrit 31.4 % (35.3-44.9); Hemoglobin 9.9 g/dL (11.5-15.4); Immature Granulocytes % 0.2 % (0-4); Lymphocytes # 3.2 K/mcL (0.6-4.6); Lymphocytes % 39.2 %; Mean Corpuscular HGB Conc 31.5 g/dL (31.6-35.5); Mean Corpuscular Hemoglobin 27.6 pg (28.0-33.3); Mean Corpuscular Volume 87.5 fL (83.0-100.0); Mean Platelet Volume 11.1 fL (9.4-12.4); Monocytes # 0.6 K/mcL (0.0-1.3); Monocytes % 7.1 %; Neutrophils # 4.2 K/mcL (1.6-8.9); Platelet Count 329 K/mcL (140-400); Red Blood Count 3.59 M/mcL (3.82-4.97); Red Cell Distribution Width 17.1 % (11.5-14.5); Segmented Neutrophils % 51.4 %; White Blood Count 8.1 K/mcL (4.3-11.1)
[2021-02-13 03:25] LABS: Calcium 8.7 mg/dL (8.6-10.3); Magnesium 1.1 mg/dL (1.6-2.6); Potassium 3.7 mEq/L (3.5-5.1)
[2021-02-13] MEDS: *HR* Heparin 5,000 UNIT/ML VIAL SQ SCH ×2 (04:22→17:15)
[2021-02-13] MEDS: Aspirin Enteric Coated 81 MG Tablet PO SCH (09:22)
[2021-02-13] MEDS: carvediloL 25 MG TABLET PO SCH ×2 (09:22→17:15)
[2021-02-13] MEDS: Insulin LISPRO 300 UNITS/3 ML VIAL SUBQ SCH ×4 (09:22→19:57)
[2021-02-13] MEDS: Isosorbide MONOnitrate (24 HR) 30 MG TAB.ER.24H PO SCH (09:22)
[2021-02-13] MEDS: Nitroglycerin 0.4 MG TAB.SUBL SL PRN (21:37)
[2021-02-13] MEDS: ALPRAZolam 0.5 MG TABLET PO PRN (21:37)
[2021-02-13] MEDS: 0.9 % Sodium Chloride 1,000 ML IVC SCH (22:31)
[2021-02-14 03:15] LABS: Basophils % 0.3 %; Eosinophils # 0.1 K/mcL (0.0-0.6); Eosinophils % 1.4 %; Hematocrit 28.8 % (35.3-44.9); Hemoglobin 9.4 g/dL (11.5-15.4); Immature Granulocytes % 0.2 % (0-4); Lymphocytes % 34.7 %; Mean Corpuscular HGB Conc 32.6 g/dL (31.6-35.5); Mean Corpuscular Hemoglobin 27.4 pg (28.0-33.3); Mean Platelet Volume 10.9 fL (9.4-12.4); Monocytes # 0.5 K/mcL (0.0-1.3); Monocytes % 6.2 %; Platelet Count 327 K/mcL (140-400); Red Blood Count 3.43 M/mcL (3.82-4.97); Red Cell Distribution Width 16.8 % (11.5-14.5); Segmented Neutrophils % 57.2 %; White Blood Count 8.7 K/mcL (4.3-11.1)
[2021-02-14 03:23] LABS: Prothrombin Time 11.2 Seconds (9.4-12.1)
[2021-02-14 03:35] LABS: Calcium 9.3 mg/dL (8.6-10.3); Magnesium 1.9 mg/dL (1.6-2.6); Potassium 3.8 mEq/L (3.5-5.1)
[2021-02-14] MEDS: *HR* Heparin 5,000 UNIT/ML VIAL SQ SCH ×2 (06:14→16:23)
[2021-02-14] MEDS: Insulin LISPRO 300 UNITS/3 ML VIAL SUBQ SCH ×4 (09:52→19:48)
[2021-02-14] MEDS: carvediloL 25 MG TABLET PO SCH ×2 (09:55→18:06)
[2021-02-14] MEDS: Isosorbide MONOnitrate (24 HR) 30 MG TAB.ER.24H PO SCH (09:55)
[2021-02-14] MEDS: Aspirin Enteric Coated 81 MG Tablet PO SCH (09:55)
[2021-02-14] MEDS ORDERED: Heparin 1,000 UNITS/500 mL 500 ML ONE (11:45)
[2021-02-14] MEDS ORDERED: Nitroglycerin 1,000 MCG/5 ML VIAL IV ONE (11:45)
[2021-02-14] MEDS ORDERED: ISOVUE-370 200 ML INFUS..BTL ONE ×2 (11:45→12:56)
[2021-02-14] MEDS ORDERED: 0.9 % Sodium Chloride 2,000 ML ONE (11:45)
[2021-02-14] MEDS ORDERED: *HR* Heparin 10,000 UNIT/10 ML VIAL ONE (11:45)
[2021-02-14] MEDS ORDERED: *HR* FentaNYL (PF) 100 MCG/2 ML VIAL ONE (12:07)
[2021-02-14] MEDS ORDERED: *HR* Midazolam HCl 2 MG/2 ML VIAL ONE (12:07)
[2021-02-14] MEDS ORDERED: Tirofiban 12.5 MG/250ML 12.5 MG/250 ML BAG ONE (12:42)
[2021-02-14] MEDS ORDERED: Tirofiban 12.5 MG/250ML 12.5 MG/250 ML BAG IVC SCH (13:15)
[2021-02-14] MEDS: ALPRAZolam 0.5 MG TABLET PO PRN (19:57)
[2021-02-14] MEDS: 0.9 % Sodium Chloride 1,000 ML IVC SCH (22:42)
[2021-02-14 23:33] VITALS: TEMP 98.3
[2021-02-15] MEDS: *HR* Heparin 5,000 UNIT/ML VIAL SQ SCH (05:01)
[2021-02-15 05:06] LABS: Basophils % 0.4 %; Eosinophils # 0.1 K/mcL (0.0-0.6); Eosinophils % 1.7 %; Immature Granulocytes % 0.2 % (0-4); Lymphocytes # 2.5 K/mcL (0.6-4.6); Lymphocytes % 30.4 %; Mean Corpuscular HGB Conc 32.1 g/dL (31.6-35.5); Mean Corpuscular Hemoglobin 27.4 pg (28.0-33.3); Mean Corpuscular Volume 85.1 fL (83.0-100.0); Mean Platelet Volume 11.2 fL (9.4-12.4); Monocytes # 0.6 K/mcL (0.0-1.3); Monocytes % 6.8 %; Neutrophils # 4.9 K/mcL (1.6-8.9); Platelet Count 321 K/mcL (140-400); Red Blood Count 3.29 M/mcL (3.82-4.97); Red Cell Distribution Width 17.2 % (11.5-14.5); Segmented Neutrophils % 60.5 %; White Blood Count 8.1 K/mcL (4.3-11.1)
[2021-02-15 05:26] LABS: Calcium 8.7 mg/dL (8.6-10.3); Magnesium 1.4 mg/dL (1.6-2.6); Potassium 4.1 mEq/L (3.5-5.1)
[2021-02-15 07:33] VITALS: BP 123/73; PULSE 97; O2SAT 91
[2021-02-15] MEDS: carvediloL 25 MG TABLET PO SCH (08:06)
[2021-02-15] MEDS: Insulin LISPRO 300 UNITS/3 ML VIAL SUBQ SCH (08:06)
[2021-02-15] MEDS: Aspirin Enteric Coated 81 MG Tablet PO SCH (08:06)
[2021-02-15] MEDS: Isosorbide MONOnitrate (24 HR) 30 MG TAB.ER.24H PO SCH (08:06)
== END 2021-02-15 13:39 | disposition home or self-care (01) | DRG 247 ==
LOC: EMEROOARM 02:24 → 3BNU 02:24 → SUATTDRO 06:49 → 3BNU 07:40
PROVIDERS: ADMIT Family Medicine; ATTEND Internal Medicine

== ENCOUNTER 2021-06-08 06:45 | Observation (INO) ==
[2021-06-08 07:14] LABS: Basophils # 0.1 K/mcL (0.0-0.2); Basophils % 0.6 %; Eosinophils # 0.3 K/mcL (0.0-0.6); Eosinophils % 3.1 %; Hematocrit 31.4 % (35.3-44.9); Immature Granulocytes % 0.2 % (0-4); Lymphocytes % 35.2 %; Mean Corpuscular HGB Conc 31.8 g/dL (31.6-35.5); Mean Corpuscular Hemoglobin 27.8 pg (28.0-33.3); Mean Corpuscular Volume 87.2 fL (83.0-100.0); Mean Platelet Volume 10.4 fL (9.4-12.4); Monocytes # 0.7 K/mcL (0.0-1.3); Monocytes % 8.1 %; Neutrophils # 4.5 K/mcL (1.6-8.9); Platelet Count 314 K/mcL (140-400); Red Cell Distribution Width 15.3 % (11.5-14.5); Segmented Neutrophils % 52.8 %; White Blood Count 8.4 K/mcL (4.3-11.1)
[2021-06-08 07:22] LABS: Prothrombin Time 11.3 Seconds (9.4-12.1)
[2021-06-08 07:24] LABS: Activated Partial Thrombo Time 30.6 Seconds (26.0-36.0)
[2021-06-08 07:33] LABS: BUN/Creatinine Ratio 19 (6-26); Blood Urea Nitrogen 28 mg/dL (8-23); Calcium 9.1 mg/dL (8.6-10.3); Carbon Dioxide 25 mEq/L (23-29); Chloride 103 mEq/L (98-107); Glucose 147 mg/dL (70-105); Lipase 48 Units/L (11-82); Osmolality,Calculated 288 (280-300); Potassium 4.3 mEq/L (3.5-5.1); Sodium 135 mEq/L (136-145); eGFR For African Americans 41 (> 60); eGFR For Non-African Americans 33 (> 60)
[2021-06-08 07:34] LABS: Troponin I < 0.03 ng/mL (< 0.04)
[2021-06-08 08:22] LABS: Bacteria,Urine Few per hpf (None-Few); Bilirubin,Urine Negative (Negative); Blood,Urine Negative (Negative); Clarity,Urine Clear (Clear); Color,Urine Light-Yellow (Yellow); Glucose,Urine (UA) Normal (Normal); Ketones,Urine Negative (Negative); Leukocyte Esterase,Urine Large (Negative); Mucus,Urine Few per lpf (None-Few); Nitrite,Urine Negative (Negative); Protein,Urine Negative (Neg-Trace); RBC,Urine 0-3 per hpf (0-3); Specific Gravity,Urine 1.009 (1.010-1.025); Squamous Epithelial Cell,Urine Few per hpf (None-Few); Urobilinogen,Urine Normal (Normal); WBC,Urine 30-50 per hpf (0-3)
[2021-06-08] MEDS ORDERED: cefTRIAXone 1,000 MG in 0.9 % Sodium Chloride Mini Bag 100 ML IVPB STA (09:01)
[2021-06-08] MEDS ORDERED: Mag Hydrox/Al Hydrox/Simeth 30 ML UDC PO PRN (09:14)
[2021-06-08] MEDS ORDERED: Ondansetron ODT 4 MG TAB.RAPDIS SL PRN (09:14)
[2021-06-08] MEDS ORDERED: Naloxone 0.4 MG/ML INJ IVP PRN (09:14)
[2021-06-08] MEDS ORDERED: Melatonin 3 MG TABLET PO PRN (09:14)
[2021-06-08] MEDS ORDERED: Morphine Sulfate 2 MG/ML SYRINGE IVP PRN (09:19)
[2021-06-08] MEDS ORDERED: Nitroglycerin 0.4 MG TAB.SUBL SL PRN (09:19)
[2021-06-08] MEDS ORDERED: *HR* Dextrose 50 % in Water (Syg) 50 ML SYRINGE IVP PRN (09:26)
[2021-06-08] MEDS ORDERED: D5% in Water 1,000 ML IVC PRN (09:26)
[2021-06-08] MEDS ORDERED: Dextrose Gel 15 GM/37.5 ML TUBE PO PRN ×2 (09:26)
[2021-06-08 10:17] LABS: Magnesium 1.2 mg/dL (1.6-2.6)
[2021-06-08] MEDS: Insulin LISPRO 300 UNITS/3 ML VIAL SUBQ SCH ×3 (10:41→20:06)
[2021-06-08] MEDS ORDERED: Perflutren Lipid Microsphere 1.3 ML in 0.9 % Sodium Chloride 8.7 ML IVP PRN (11:23)
[2021-06-08] MEDS: Ranolazine 500 MG TAB.ER.12H PO SCH (20:07)
[2021-06-08] MEDS: ALPRAZolam 0.5 MG TABLET PO PRN (20:07)
[2021-06-09 02:53] LABS: Basophils # 0.1 K/mcL (0.0-0.2); Basophils % 0.7 %; Eosinophils # 0.3 K/mcL (0.0-0.6); Eosinophils % 3.4 %; Hematocrit 33.2 % (35.3-44.9); Hemoglobin 10.5 g/dL (11.5-15.4); Immature Granulocytes % 0.2 % (0-4); Lymphocytes # 3.2 K/mcL (0.6-4.6); Lymphocytes % 37.2 %; Mean Corpuscular HGB Conc 31.6 g/dL (31.6-35.5); Mean Corpuscular Hemoglobin 27.9 pg (28.0-33.3); Mean Corpuscular Volume 88.3 fL (83.0-100.0); Mean Platelet Volume 10.6 fL (9.4-12.4); Monocytes # 0.6 K/mcL (0.0-1.3); Monocytes % 7.4 %; Neutrophils # 4.4 K/mcL (1.6-8.9); Platelet Count 322 K/mcL (140-400); Red Blood Count 3.76 M/mcL (3.82-4.97); Red Cell Distribution Width 15.5 % (11.5-14.5); Segmented Neutrophils % 51.1 %; White Blood Count 8.6 K/mcL (4.3-11.1)
[2021-06-09 03:04] LABS: Prothrombin Time 11.2 Seconds (9.4-12.1)
[2021-06-09 03:17] LABS: Albumin 3.9 g/dL (3.5-5.7); Albumin/Globulin Ratio 1.1 (1.1-2.2); Bilirubin,Total 0.3 mg/dL (0.3-1.0); Calcium 9.1 mg/dL (8.6-10.3); Globulin 3.7 g/dL (2.4-3.5); Magnesium 1.7 mg/dL (1.6-2.6); Potassium 4.3 mEq/L (3.5-5.1); Total Protein 7.6 g/dL (6.4-8.9)
[2021-06-09] MEDS: carvediloL 25 MG TABLET PO SCH ×3 (05:06→17:06)
[2021-06-09] MEDS: lisinopriL 5 MG TABLET PO SCH (08:55)
[2021-06-09] MEDS: Insulin LISPRO 300 UNITS/3 ML VIAL SUBQ SCH ×4 (08:55→22:04)
[2021-06-09] MEDS: Isosorbide MONOnitrate (24 HR) 30 MG TAB.ER.24H PO SCH (08:55)
[2021-06-09] MEDS: Aspirin Enteric Coated 81 MG Tablet PO SCH (08:55)
[2021-06-09] MEDS: Ranolazine 500 MG TAB.ER.12H PO SCH ×2 (08:55→22:04)
[2021-06-09] MEDS ORDERED: cefTRIAXone 1,000 MG in 0.9 % Sodium Chloride 10 ML IVP SCH (09:00)
[2021-06-09] MEDS: ALPRAZolam 0.5 MG TABLET PO PRN (17:06)
[2021-06-10] MEDS: Ranolazine 500 MG TAB.ER.12H PO SCH (08:38)
[2021-06-10] MEDS: carvediloL 25 MG TABLET PO SCH (08:38)
[2021-06-10] MEDS: lisinopriL 5 MG TABLET PO SCH (08:38)
[2021-06-10] MEDS: Isosorbide MONOnitrate (24 HR) 30 MG TAB.ER.24H PO SCH (08:38)
[2021-06-10] MEDS: Aspirin Enteric Coated 81 MG Tablet PO SCH (08:38)
[2021-06-10] MEDS: Insulin LISPRO 300 UNITS/3 ML VIAL SUBQ SCH ×2 (08:38→11:31)
[2021-06-10 10:46] VITALS: BP 92/55; PULSE 80; TEMP 97.4; O2SAT 93
== END 2021-06-10 13:55 | disposition home or self-care (01) ==
LOC: EMEROOARM 06:45 → 3BNU 06:45
PROVIDERS: ADMIT Family Medicine; ATTEND Family Medicine

== ENCOUNTER 2021-06-29 23:36 | Observation (INO) ==
[2021-06-30] MEDS ORDERED: GI Cocktail 40 ML EACH PO ONE (00:17)
[2021-06-30] MEDS ORDERED: Ondansetron 4 MG/2 ML VIAL IVP ONE (00:17)
[2021-06-30] MEDS ORDERED: Famotidine 20 MG/2 ML VIAL IVP ONE (00:19)
[2021-06-30 01:11] LABS: Basophils % 0.2 %; Eosinophils # 0.1 K/mcL (0.0-0.6); Eosinophils % 0.6 %; Hematocrit 28.3 % (35.3-44.9); Hemoglobin 9.2 g/dL (11.5-15.4); Immature Granulocytes % 0.3 % (0-4); Lymphocytes # 2.9 K/mcL (0.6-4.6); Lymphocytes % 27.5 %; Mean Corpuscular HGB Conc 32.5 g/dL (31.6-35.5); Mean Corpuscular Hemoglobin 27.9 pg (28.0-33.3); Mean Corpuscular Volume 85.8 fL (83.0-100.0); Mean Platelet Volume 10.7 fL (9.4-12.4); Monocytes # 0.9 K/mcL (0.0-1.3); Monocytes % 8.3 %; Neutrophils # 6.6 K/mcL (1.6-8.9); Platelet Count 326 K/mcL (140-400); Red Cell Distribution Width 15.9 % (11.5-14.5); Segmented Neutrophils % 63.1 %; White Blood Count 10.5 K/mcL (4.3-11.1)
[2021-06-30 01:28] LABS: BUN/Creatinine Ratio 18 (6-26); Blood Urea Nitrogen 44 mg/dL (8-23); Calcium 9.3 mg/dL (8.6-10.3); Carbon Dioxide 25 mEq/L (23-29); Chloride 97 mEq/L (98-107); Glucose 130 mg/dL (70-105); Lipase 110 Units/L (11-82); Osmolality,Calculated 289 (280-300); Potassium 4.1 mEq/L (3.5-5.1); Sodium 133 mEq/L (136-145); Troponin I < 0.03 ng/mL (< 0.04); eGFR For African Americans 23 (> 60); eGFR For Non-African Americans 19 (> 60)
[2021-06-30] MEDS ORDERED: 0.9 % Sodium Chloride 1,000 ML IVC ONE (01:31)
[2021-06-30 01:47] LABS: Alanine Aminotransferase 21 Units/L (7-52); Albumin 3.7 g/dL (3.5-5.7); Alkaline Phosphatase 74 Units/L (34-104); Aspartate Amino Transferase 24 Units/L (13-39); Bilirubin,Indirect 0.5 mg/dL (0.0-1.0); Bilirubin,Total 0.5 mg/dL (0.3-1.0); Globulin 3.8 g/dL (2.4-3.5); Total Protein 7.5 g/dL (6.4-8.9)
[2021-06-30] MEDS ORDERED: Ondansetron 4 MG/2 ML VIAL IVP PRN (02:07)
[2021-06-30] MEDS ORDERED: Melatonin 3 MG TABLET PO PRN (02:07)
[2021-06-30] MEDS ORDERED: Naloxone 0.4 MG/ML INJ IVP PRN (02:07)
[2021-06-30] MEDS ORDERED: 0.9 % Sodium Chloride 1,000 ML IVC SCH (02:15)
[2021-06-30] MEDS ORDERED: D5% in Water 1,000 ML IVC PRN (03:16)
[2021-06-30] MEDS ORDERED: Dextrose 4 GM Chewable Tablets PO PRN ×2 (03:16)
[2021-06-30] MEDS ORDERED: *HR* Dextrose 50 % in Water (Syg) 50 ML SYRINGE IVP PRN (03:16)
[2021-06-30 03:55] LABS: Adenovirus Not Detected (Not Detect); Bordetella Pertussis Not Detected (Not Detect); Chlamydophila pneumoniae Not Detected (Not Detect); Coronavirus 229E Not Detected (Not Detect); Coronavirus HKU1 Not Detected (Not Detect); Coronavirus NL63 Not Detected (Not Detect); Coronavirus OC43 Not Detected (Not Detect); Human Metapneumovirus Not Detected (Not Detect); Human Rhinovirus/Enterovirus Not Detected (Not Detect); Influenza A Subtype 2009 H1 Not Detected (Not Detect); Influenza B Not Detected (Not Detect); Mycoplasma pneumoniae Not Detected (Not Detect); Parainfluenza Virus 1 Not Detected (Not Detect); Parainfluenza Virus 2 Not Detected (Not Detect); Parainfluenza Virus 3 Not Detected (Not Detect); Parainfluenza Virus 4 Not Detected (Not Detect); Respiratory Syncytial Virus Not Detected (Not Detect)
[2021-06-30 03:59] LABS: SARS-CoV-2 DETECTED (Not Detect)
[2021-06-30 06:06] LABS: Hematocrit 27.8 % (35.3-44.9); Hemoglobin 9.1 g/dL (11.5-15.4); Mean Corpuscular HGB Conc 32.7 g/dL (31.6-35.5); Mean Corpuscular Hemoglobin 28.6 pg (28.0-33.3); Mean Corpuscular Volume 87.4 fL (83.0-100.0); Mean Platelet Volume 11.2 fL (9.4-12.4); Platelet Count 332 K/mcL (140-400); Red Blood Count 3.18 M/mcL (3.82-4.97); Red Cell Distribution Width 15.8 % (11.5-14.5); White Blood Count 8.9 K/mcL (4.3-11.1)
[2021-06-30 08:41] LABS: Calcium 8.5 mg/dL (8.6-10.3); Chol/HDL Ratio 4.7 (0-4.9); Magnesium 2.6 mg/dL (1.6-2.6); Phosphorous 3.3 mg/dL (2.7-4.5); Potassium 3.9 mEq/L (3.5-5.1)
[2021-06-30] MEDS: Insulin LISPRO 300 UNITS/3 ML VIAL SUBQ SCH ×3 (09:13→18:06)
[2021-06-30] MEDS: Ranolazine 500 MG TAB.ER.12H PO SCH ×2 (09:27→21:56)
[2021-06-30] MEDS: Isosorbide MONOnitrate (24 HR) 30 MG TAB.ER.24H PO SCH (09:28)
[2021-06-30] MEDS ORDERED: *HR* Propofol 200 MG/20 ML VIAL IVP ONE (14:12)
[2021-06-30] MEDS ORDERED: Lidocaine -MPF 2% 5 ML VIAL ONE (14:15)
[2021-06-30] MEDS ORDERED: *HR* Succinylcholine 200 MG/10 ML VIAL IVP ONE (14:41)
[2021-06-30] MEDS: 0.9 % Sodium Chloride 1,000 ML IVC SCH (15:53)
[2021-06-30] MEDS: ALPRAZolam 0.5 MG TABLET PO PRN (21:55)
[2021-07-01] MEDS: Insulin LISPRO 300 UNITS/3 ML VIAL SUBQ SCH ×4 (02:04→18:50)
[2021-07-01 02:34] LABS: Hematocrit 27.5 % (35.3-44.9); Hemoglobin 8.9 g/dL (11.5-15.4); Mean Corpuscular HGB Conc 32.4 g/dL (31.6-35.5); Mean Corpuscular Hemoglobin 28.1 pg (28.0-33.3); Mean Corpuscular Volume 86.8 fL (83.0-100.0); Mean Platelet Volume 11.2 fL (9.4-12.4); Platelet Count 298 K/mcL (140-400); Red Blood Count 3.17 M/mcL (3.82-4.97); Red Cell Distribution Width 15.8 % (11.5-14.5); White Blood Count 8.6 K/mcL (4.3-11.1)
[2021-07-01 02:53] LABS: Calcium 8.8 mg/dL (8.6-10.3); Chol/HDL Ratio 5.5 (0-4.9); Magnesium 2.5 mg/dL (1.6-2.6); Phosphorous 3.8 mg/dL (2.7-4.5); Potassium 4.3 mEq/L (3.5-5.1)
[2021-07-01] MEDS ORDERED: FOLIC AC PO SCH (09:00)
[2021-07-01] MEDS ORDERED: CYANOCOBALAMIN PO SCH (09:00)
[2021-07-01] MEDS ORDERED: VIT B6 PO SCH (09:00)
[2021-07-01] MEDS ORDERED: lisinopriL 5 MG TABLET PO SCH (09:00)
[2021-07-01] MEDS ORDERED: Aspirin Enteric Coated 81 MG Tablet PO SCH (09:00)
[2021-07-01] MEDS ORDERED: Pantoprazole 40 MG VIAL IVP SCH (09:00)
[2021-07-01] MEDS ORDERED: traZODone 50 MG TABLET PO SCH (09:00)
[2021-07-01] MEDS: Ranolazine 500 MG TAB.ER.12H PO SCH (10:05)
[2021-07-01] MEDS: Isosorbide MONOnitrate (24 HR) 30 MG TAB.ER.24H PO SCH (10:07)
[2021-07-01 17:00] VITALS: BP 164/83; PULSE 76; TEMP 98.2; O2SAT 96
[2021-07-01] MEDS: ALPRAZolam 0.5 MG TABLET PO PRN (18:51)
[2021-07-01] MEDS: 0.9 % Sodium Chloride 1,000 ML IVC SCH (19:15)
== END 2021-07-01 19:45 | disposition home or self-care (01) ==
LOC: EMEROOARM 23:36 → 3BNU 23:36 → SUATTDRO 06-30 02:56 → 3BNU 06-30 03:55
PROVIDERS: ADMIT Internal Medicine; ATTEND Internal Medicine